=== PATIENT | male | born 1990 | race African-American/Black ===

== ENCOUNTER 2022-09-17 13:10 | Emergency (ER) | payer BC, SELFPAY ==
[2022-09-17 13:25] VITALS: BP 121/53; PULSE 66; RESP 18; TEMP 36.8; O2SAT 100
--- NOTE | 2022-09-17 13:45 | ED.SKABFB ---
HPI - Skin/Abscess/Foreign Bdy General Chief complaint: Skin/Abscess/Foreign Body Stated complaint: Rash Time Seen by Provider: 09/17/22 13:36 Source: patient and RN notes reviewed Mode of arrival: ambulatory Limitations: no limitations History of Present Illness HPI narrative: Patient presents today complaining of a scabbed rash to his left elbow x2 weeks. He is unsure of the etiology. Reports itching around the perimeter, but denies any additional symptoms. His significant other applied liquid Band-Aid approximately 1 week ago, but he has not tried any additional treatment. Related Data Home Medications Medication Instructions Recorded Confirmed No Home Medications 09/17/22 09/17/22 Allergies Allergy/AdvReac Type Severity Reaction Status Date / Time No Known Allergies Allergy Verified 09/17/22 13:24 Review of Systems Review of Systems: CONSTITUTIONAL: Denies body aches, fever, chills, or sweats. EYES: Denies visual changes, redness, or discharge. ENT: Denies rhinorrhea, congestion, sore throat, or otalgia. CARDIOVASCULAR: Denies chest pain, palpitations, or edema. RESPIRATORY: Denies cough or dyspnea. GASTROINTESTINAL: Denies abdominal pain, nausea, vomiting, or diarrhea. GENITOURINARY: Denies dysuria or hematuria. SKIN: + slightly pruritic scabbed lesion the left elbow MUSCULOSKELETAL: Denies back pain, joint pain, or myalgia. NEUROLOGIC: Denies headache, numbness, tingling, or weakness. PSYCH: Denies depression or anxiety. PMFSH Comments At time of signature, I have reviewed and agree with nursing past medical, surgical, social and family history unless otherwise noted. Please see nursing chart for further information. There is no relevant family history pertinent to the presenting complaint Exam Narrative: GENERAL: Well-appearing, well-nourished, and in no acute distress. HEAD: Normocephalic, atraumatic. EYES: EOMI. No redness or drainage. Conjunctivae normal. ENT: Mucous membranes pink and moist. NECK: Normal AROM. CHEST: No respiratory distress. EXTREMITIES: Normal range of motion. No edema. SKIN: Warm, dry. Capillary refill normal. Normal skin turgor. Approximately 5 cm crescent-shaped scabbed lesion to the left elbow. Lesion is dry and slightly flaky. No erythema, edema, drainage, crustiness. NEURO: No focal deficits. Alert and oriented x3. Gait steady. PSYCH: Normal affect. No signs of depression or anxiety. Course Course Level of Care: Express Care Visit Vital Signs Vital signs: Vital Signs Temperature 98.3 F 09/17/22 13:25 Pulse Rate 66 09/17/22 13:25 Respiratory Rate 18 09/17/22 13:25 Blood Pressure 121/53 L 09/17/22 13:25 Pulse Oximetry 100 09/17/22 13:25 Oxygen Delivery Room Air 09/17/22 13:25 Temperature 98.3 F 09/17/22 13:25 Pulse Rate 66 09/17/22 13:25 Respiratory Rate 18 09/17/22 13:25 Blood Pressure 121/53 L 09/17/22 13:25 Pulse Oximetry 100 09/17/22 13:25 Oxygen Delivery Room Air 09/17/22 13:25 Reviewed. Pt has been instructed to follow up with his PCP regarding his elevated blood pressure today. MDM - Skin/Abscess/Foreign Bdy MDM Narrative Medical decision making narrative: Unsure of etiology of lesion, but it seems to be healing well without difficulty. No need for treatment at this time. Instructed patient to apply Vaseline, which may help with the dryness and itching. Patient agrees with plan. Anticipatory guidance given. Differential Diagnosis Differential diagnosis: Likely abscess of skin or subcutaneous tissue, dermatophytosis, cellulitis, eczema, impetigo and contact dermatitis Critical Care Time Critical Care Time Critical Care Time: No Discharge Plan Discharge Clinical Impression: Soft tissue lesion of elbow region Patient Disposition: Home, Self-Care Condition: Stable Additional Instructions: The scabbed area on your elbow does not seem infected. Apply some Vaseline to possi
== END 2022-09-17 13:54 | disposition home or self-care (01) ==
PROVIDERS: Emergency Provider Nurse Practitioner
DX: L98.9 Disorder of the skin and subcutaneous tissue, unspecified (principal)
CPT/HCPCS: 99202; G0463